=== PATIENT | female | born 1995 | race Caucasian/White ===

== ENCOUNTER 2018-04-01 16:02 | Emergency (ER) | payer SELFPAY ==
[2018-04-01 16:28] VITALS: TEMP 99.4
--- NOTE | 2018-04-01 17:08 | ED.PDOC ---
History of Present Illness - General Chief Complaint: ENT Problem Time Seen by Provider: 04/01/18 17:06 Source: patient Exam Limitations: no limitations - History of Present Illness Initial Comments: patient comes in today with 4 day history of right ear pain. Patient states the pain last night was so severe that it kept her awake. Patient had no discharge and does not hurt with movement. Patient has had no nasal congestion , fever, or chills. She's had these episodes before in the past and her PCP did not know what is causing them. She has a consultation with neurology there is still pending. Patient states today she was worried that she had an ear infection. Patient is otherwise healthy and has no other acute complaints. Timing/Duration: other - 4 days but really bad last night Severity: severe EENT Location: ear (R) Prearrival Treatment: no prearrival treatment Improving Factors: nothing Worsening Factors: nothing Associated Symptoms: fever - temp to 99 Allergies/Adverse Reactions: Allergies NO KNOWN ALLERGY Allergy (Verified 07/14/14 20:36) Home Medications: Ambulatory Orders Control 1 ea PO DAILY 09/10/15 Iron Combinations [Iron Complex] 1 cap PO DAILY 09/10/15 Sulfa/Trimeth 800/160 (Ds) Tab [Bactrim DS Tab] 1 ea PO BID #14 tab 09/10/15 Review of Systems - Review of Systems Constitutional: States: no symptoms reported, fever. Denies: chills EENTM: States: see HPI, ear pain. Denies: nose congestion, throat pain, mouth swelling Respiratory: States: no symptoms reported. Denies: cough, short of breath, wheezing Cardiology: States: no symptoms reported. Denies: chest pain, edema, palpitations Gastrointestinal/Abdominal: States: no symptoms reported. Denies: abdominal pain, constipation, diarrhea, vomiting Past Medical History (General) - Patient Medical History Hx Seizures: No Hx Stroke: No Hx Dementia: No Hx Asthma: No Hx of COPD: No Hx Cardiac Disorders: Yes - states she is anemic Hx Congestive Heart Failure: No Hx Pacemaker: No Hx Hypertension: No Hx Thyroid Disease: No Hx Diabetes: No Hx Gastroesophageal Reflux: No Hx Renal Disease: No Hx Cancer: No Hx of HIV: No Hx Hepatitis C: No Hx MRSA: No - Vaccination History Hx Tetanus, Diphtheria Vaccination: Yes Hx Influenza Vaccination: No Hx Pneumococcal Vaccination: No Immunizations Up to Date: No - Social History Hx Tobacco Use: No Hx Chewing Tobacco Use: No Hx Alcohol Use: No Hx Substance Use: No Hx Substance Use Treatment: No Hx Depression: No Feels Threatened In Home Enviroment: No Feels Threatened In a Relationship: No Hx Physical Abuse: No Hx Emotional Abuse: No Hx Suspected Abuse: No - Activities of Daily Living Hospice Agency (if applicable):: None - Female History Patient is a Female of Child Bearing Age (10 -59 yrs old): Yes Hx Last Menstrual Period: 05/15/14 Patient : Yes Family Medical History - Family History Mother Family History: Unknown Physical Exam - Physical Exam General Appearance: Alert, No apparent distress Eye Exam: bilateral normal Ear Exam: bilateral ear: auricle normal, canal normal, TM normal Nasal Exam: normal inspection Throat Exam: normal mouth inspection, pharynx normal Neck: non-tender, full range of motion, supple, normal inspection Cardiovascular/Respiratory: regular rate, rhythm, no M/R/G, normal peripheral pulses, normal breath sounds, no respiratory distress Abdominal Exam: other - nl BS Progress - Progress Progress: discussed with patient that overall the exam is reassuring. I offered to give her a shot of Toradol or something for swelling to see if perhaps there is some fluid that we just can't completely visualize. However, patient states she does not want a shot or anything if the exam is negative. At this time reassuring exam and she will follow up with her PCP 04/01/18 17:08 - EKG/XRAY/CT CT Ordered: No CT Interpretation Call Back: No Departure - Departure Clinical Impression: Myofascial pain Disposition: Discharge to Home or Self Care Condition: Good Departure Forms: ED Discharge - Pt. Copy, Patient Portal Self Enrollment Instructions: DI for Ear Pain-Adult Referrals: RICARDO SILVESTRE [employer] [facility] [Primary Care Provider] - 1-2 Weeks Home Medications: Ambulatory Orders Control 1 ea PO DAILY 09/10/15 Iron Combinations [Iron Complex] 1 cap PO DAILY 09/10/15 Sulfa/Trimeth 800/160 (Ds) Tab [Bactrim DS Tab] 1 ea PO BID #14 tab 09/10/15 Additional Instructions: follow up with PCP in am if not better
[2018-04-01] MEDS ORDERED: DEXAMETHASONE INJ 4 MG/ML VIAL IM ONE (17:14)
[2018-04-01] MEDS ORDERED: KETOROLAC TROMETHAMINE INJ 30 MG/ML VIAL IM ONE (17:14)
[2018-04-01 17:25] VITALS: BP 140/78; O2SAT 98
== END 2018-04-01 17:38 | disposition home or self-care (01) ==
LOC: ER 16:02
DX: M79.1 Myalgia (principal); H92.01 Otalgia, right ear; D64.9 Anemia, unspecified; Z79.899 Other long term (current) drug therapy
CPT/HCPCS: J1100; J1885

== ENCOUNTER 2018-11-02 01:15 | Emergency (ER) | payer OTHER ==
[2018-11-02 01:27] VITALS: BP 127/80; TEMP 98.7; O2SAT 100
[2018-11-02] MEDS ORDERED: AMOXICILLIN TRIHYDRATE 875 MG TAB PO ONE (01:35)
[2018-11-02] MEDS ORDERED: ACETAMINOPHEN W/COD #3 TAB (ER Disp) PO ONE (01:37)
--- NOTE | 2018-11-02 01:43 | ED.PDOC ---
History of Present Illness - General Chief Complaint: General Stated Complaint: Right side facial swelling x 3 days Time Seen by Provider: 11/02/18 01:25 Source: patient Exam Limitations: no limitations - History of Present Illness Initial Comments: c/o right sided facial swelling & a toothache x 2 days. No fever, headache or vomiting. 23 weeks . Timing/Duration: gradual Severity: moderate Prearrival Treatment: other - Tylenol 4 hrs ago Improving Factors: nothing Worsening Factors: eating Associated Symptoms: facial pain/swelling, tooth pain Allergies/Adverse Reactions: Allergies Tramadol Allergy (Verified 11/02/18 01:24) Home Medications: Ambulatory Orders Penicillin V Potassium 500 mg PO Q6H 7 Days #28 tab 11/02/18 Vit W/ Ferrous Fumara [] 1 11/02/18 Review of Systems - Review of Systems Constitutional: States: no symptoms reported EENTM: States: see HPI Respiratory: States: no symptoms reported Cardiology: States: no symptoms reported Gastrointestinal/Abdominal: States: no symptoms reported Genitourinary: States: no symptoms reported Neurological: States: no symptoms reported Past Medical History (General) - Patient Medical History Hx Seizures: No Hx Stroke: No Hx Dementia: No Hx Asthma: No Hx of COPD: No Hx Cardiac Disorders: Yes - states she is anemic Hx Congestive Heart Failure: No Hx Pacemaker: No Hx Hypertension: No Hx Thyroid Disease: No Hx Diabetes: No Hx Gastroesophageal Reflux: No Hx Renal Disease: No Hx Cancer: No Hx of HIV: No Hx Hepatitis C: No Hx MRSA: No - Vaccination History Hx Tetanus, Diphtheria Vaccination: Yes Hx Influenza Vaccination: No Hx Pneumococcal Vaccination: No - Social History Hx Tobacco Use: No Hx Chewing Tobacco Use: No Hx Alcohol Use: No Hx Substance Use: No Hx Substance Use Treatment: No Hx Depression: No Hx Physical Abuse: No Hx Emotional Abuse: No Hx Suspected Abuse: No - Female History Hx Last Menstrual Period: 05/15/14 Patient : Yes Family Medical History - Family History Mother Family History: Unknown Physical Exam - Physical Exam General Appearance: Alert, Comfortable, No apparent distress Eye Exam: bilateral normal Throat Exam: normal mouth inspection, pharynx normal, dental tenderness - #1 with gum line swelling & erythema, maxillary swelling Neck: supple, normal inspection Cardiovascular/Respiratory: no respiratory distress Neurologic: alert, normal mood/affect, oriented x 3 Skin Exam: normal color, warm/dry Departure - Departure Clinical Impression: Dental caries Time of Disposition: 01:41 Disposition: Discharge to Home or Self Care Condition: Good Departure Forms: ED Discharge - Pt. Copy, Patient Portal Self Enrollment Referrals: Parag Fuentes MD [Affiliate Staff] - 11/03/18 Prescriptions: Penicillin V Potassium 500 mg PO Q6H 7 Days #28 tab Home Medications: Ambulatory Orders Penicillin V Potassium 500 mg PO Q6H 7 Days #28 tab 11/02/18 Vit W/ Ferrous Fumara [] 1 11/02/18 Additional Instructions: follow up with your instructor of education on Saturday to advise him of the meds you ar t[place] & call a dentist also.
== END 2018-11-02 01:49 | disposition home or self-care (01) ==
LOC: ER 01:15
DX: O99.89 Other specified diseases and conditions complicating pregnancy, childbirth and the puerperium (principal); K02.9 Dental caries, unspecified; Z3A.23 23 weeks gestation of pregnancy; Z88.8 Allergy status to other drugs, medicaments and biological substances

== ENCOUNTER 2019-06-04 09:11 | Emergency (ER) | payer OTHER ==
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
[2019-06-04] MEDS ORDERED: ACETAMINOPHEN-CAFF-BUTALBITAL 1 EA TAB PO ONE (10:18)
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
[2019-06-04 14:14] VITALS: BP 126/82; TEMP 98.7; O2SAT 98
== END 2019-06-04 14:15 | disposition home or self-care (01) ==
LOC: ER 09:11
DX: S39.012A Strain of muscle, fascia and tendon of lower back, initial encounter (principal); G44.319 Acute post-traumatic headache, not intractable; E05.80 Other thyrotoxicosis without thyrotoxic crisis or storm; D64.9 Anemia, unspecified; M54.5 Low back pain; V49.9XXA Car occupant (driver) (passenger) injured in unspecified traffic accident, initial encounter; Y92.411 Interstate highway as the place of occurrence of the external cause

== ENCOUNTER 2019-10-31 07:47 | Emergency (ER) | payer SELFPAY ==
[2019-10-31] MEDS ORDERED: ONDANSETRON ODT 8 MG TAB SL ONE (07:53)
[2019-10-31] MEDS ORDERED: KETOROLAC TROMETHAMINE INJ 30 MG/ML VIAL IM ONE (07:53)
[2019-10-31 08:09] VITALS: TEMP 98.4
--- NOTE | 2019-10-31 10:57 | RAD ---
: 1995. Sex: Female. TECHNIQUE: Supine and upright views of the abdomen with PA chest. Comparing to June 04, 2019 CLINICAL HISTORY:ruq pain 3 hours. Findings: Nonspecific gas pattern. There are nondistended loops of large and small bowel. There is gas and stool throughout the large bowel including the sigmoid although there is little gas in the rectum. There is no mass. There is no free air. There is no opaque calculus. Skeletal structures are unremarkable. The chest x-ray is clear. IMPRESSION: 1. Nonspecific bowel pattern. No acute radiographic findings Electronically signed by: Rudy Cao MD 10/31/2019 10:56 AM CDT
[2019-10-31] MEDS ORDERED: MAGNESIUM HYDROXIDE 30 ML UD PO ONE (11:02)
--- NOTE | 2019-10-31 11:05 | ED.PDOC ---
History of Present Illness - General Chief Complaint: Abdominal Pain Stated Complaint: RLQ abdominal pain Time Seen by Provider: 10/31/19 07:52 Source: patient Exam Limitations: no limitations - History of Present Illness Initial Comments: The patient is a 24-year-old female presented emergency room secondary to abdominal pain that started a couple of hours prior to arrival. At its worst it was a 8 out of 10. Cramping in nature. It is a little worse with movement. Mild nausea. Not definitely worse with eating or drinking. No fevers. No syncope or near syncope. No pain prior to that. She has had some mild constipation issues in the past. She has already had her appendix removed but still has her gallbladder. She is not obese. Timing/Duration: 1-3 hours Severity: moderate Improving Factors: nothing Worsening Factors: nothing Associated Symptoms: nausea/vomiting Allergies/Adverse Reactions: Allergies Tramadol Allergy (Verified 10/31/19 08:08) Home Medications: Ambulatory Orders Ferrous Fumarate [Iron] 18 mg PO DAILY 10/31/19 Review of Systems - Review of Systems Constitutional: States: no symptoms reported EENTM: States: no symptoms reported Respiratory: States: no symptoms reported Cardiology: States: no symptoms reported Gastrointestinal/Abdominal: States: abdominal pain, constipation, nausea Genitourinary: States: no symptoms reported Musculoskeletal: States: no symptoms reported Skin: States: no symptoms reported Neurological: States: no symptoms reported Endocrine: States: no symptoms reported All other Systems: No Change from Baseline Past Medical History (General) - Patient Medical History Hx Seizures: No Hx Stroke: No Hx Dementia: No Hx Asthma: No Hx of COPD: No Hx Cardiac Disorders: No Hx Congestive Heart Failure: No Hx Pacemaker: No Hx Hypertension: No Hx Thyroid Disease: No Hx Diabetes: No Hx Gastroesophageal Reflux: No Hx Renal Disease: No Hx Cancer: No Hx of HIV: No Hx Hepatitis C: No Hx MRSA: No Surgical History: appendectomy - Vaccination History Hx Tetanus, Diphtheria Vaccination: No Hx Influenza Vaccination: Yes Hx Pneumococcal Vaccination: No Immunizations Up to Date: No - Social History Hx Tobacco Use: No Hx Chewing Tobacco Use: No Hx Alcohol Use: No Hx Substance Use: No Hx Substance Use Treatment: No Hx Depression: No Hx Physical Abuse: No Hx Emotional Abuse: No Hx Suspected Abuse: No - Female History Patient is a Female of Child Bearing Age (10 -59 yrs old): Yes Hx Last Menstrual Period: 05/15/14 Patient : No - Nexplanon implants Expected Date of Delivery:: 02/22/19 Family Medical History - Family History Mother Family History: Unknown Physical Exam - Physical Exam General Appearance: Alert, Comfortable, No apparent distress Eye Exam: bilateral normal Ears, Nose, Throat: hearing grossly normal, normal pharynx Neck: full range of motion, supple Respiratory: lungs clear, normal breath sounds, no respiratory distress, no accessory muscle use Cardiovascular/Chest: normal peripheral pulses, regular rate, rhythm, no edema Peripheral Pulses: radial,right: 2+, radial,left: 2+ Gastrointestinal/Abdominal: soft, other - Vague upper right abdominal discomfort to palpation. No definite rebound or peritoneal signs. Rectal Exam: deferred Back Exam: no CVA tenderness, no vertebral tenderness Extremity: normal range of motion, non-tender, normal inspection, no pedal edema, normal capillary refill, pelvis stable Neurologic: patient services representative II-XII nml as tested, alert, normal mood/affect, oriented x 3 Skin Exam: normal color Comments: Vital Signs - 24 hr 10/31/19 10/31/19 10/31/19 07:55 07:56 08:56 Temperature 98.4 F Pulse Rate [ 83 83 73 Pulse ox] Respiratory 16 16 18 Rate Blood Pressure 127/81 122/71 [R brachial] O2 Sat by Pulse 100 99 Oximetry 10/31/19 10:00 Temperature Pulse Rate [ 64 Pulse ox] Respiratory 16 Rate Blood Pressure 124/82 [R brachial] O2 Sat by Pulse 100 Oximetry Progress - Progress Progress: 10/31/19 11:06 The patient is a 24-year-old female presented emergency room secondary to upper abdominal pain of several hours duration. The patient is afebrile with no elevation of the white blood cell count, no elevation of liver function tests or pancreatic enzymes. Renal function is within normal limits and urinalysis is reassuring. She is mildly dehydrated and does need to increase her fluid intake. Abdominal x-ray shows some mild dilation of the large intestine around the area of discomfort that may be the cause of the pain. The patient has been given a dose of milk of magnesia to address that here currently. I would encourage her to ambulate. Maintain a bland diet over the next 24 hours. If discomfort is not improving or is worsening, then repeat evaluation with repeat laboratory work and possibly more advanced imaging may be warranted. Based on the findings above, that does not seem indicated at this time. Keep routine follow-up with primary care doctor. ER warnings are given. [email or web address] - Results/Orders Results/Orders: Acute abdominal series appears largely benign. There is some mildly dilated loops of large intestine around the area of discomfort but no obstruction. Laboratory Results - last 24 hr 10/31/19 10/31/19 10/31/19 08:10 08:10 09:10 WBC 5.0 RBC 4.61 Hgb 12.0 Hct 37.4 MCV 81.0 MCH 26.0 L MCHC 32.0 L RDW 14.8 H Plt Count 228 MPV 9.1 Absolute Neuts (auto) 2.80 Absolute Lymphs (auto) 1.80 Absolute Monos (auto) 0.30 Absolute Eos (auto) 0.00 Absolute Basos (auto) 0.00 Neutrophils % 57.3 Lymphocytes % 35.6 Monocytes % 5.8 Eosinophils % 0.6 L Basophils % 0.7 Sodium 138 Potassium 3.4 L Chloride 105 Carbon Dioxide 26 Anion Gap 10.4 L BUN 9 Creatinine 0.86 BUN/Creatinine Ratio 10.5 Random Glucose 104 Serum Osmolality 274.7 L Calcium 9.0 Magnesium 1.9 Total Bilirubin 0.6 AST 16 ALT 13 Alkaline Phosphatase 79 Serum Total Protein 7.9 Albumin 4.1 Globulin 3.8 H Albumin/Globulin Ratio 1.1 Amylase 32 Lipase 28 Serum HCG, Qual Negative Urine Color Urine Appearance Urine pH Ur Specific [place] Urine Protein Urine Glucose (UA) Urine Ketones Urine Blood Urine Nitrite Urine Bilirubin Urine Urobilinogen Ur Leukocyte Esterase Urine RBC Urine WBC Ur Epithelial Cells Urine Bacteria 10/31/19 10:22 WBC RBC Hgb Hct MCV MCH MCHC RDW Plt Count MPV Absolute Neuts (auto) Absolute Lymphs (auto) Absolute Monos (auto) Absolute Eos (auto) Absolute Basos (auto) Neutrophils % Lymphocytes % Monocytes % Eosinophils % Basophils % Sodium Potassium Chloride Carbon Dioxide Anion Gap BUN Creatinine BUN/Creatinine Ratio Random Glucose Serum Osmolality Calcium Magnesium Total Bilirubin AST ALT Alkaline Phosphatase Serum Total Protein Albumin Globulin Albumin/Globulin Ratio Amylase Lipase Serum HCG, Qual Urine Color Yellow Urine Appearance Cloudy H Urine pH 5.5 Ur Specific [place] > 1.030 H Urine Protein Negative Urine Glucose (UA) Negative Urine Ketones Negative Urine Blood Negative Urine Nitrite Negative Urine Bilirubin Negative Urine Urobilinogen 1.0 Ur Leukocyte Esterase Trace H Urine RBC 0 Urine WBC 3-5 H Ur Epithelial Cells 10-20 Urine Bacteria Rare Departure - Departure Clinical Impression: Mild dehydration, Colicky abdominal pain Disposition: Discharge to Home or Self Care Condition: Fair Departure Forms: ED Discharge - Pt. Copy, Patient Portal Self Enrollment Diet: bland diet Activity: increase activity as tolerated Referrals: RICARDO SILVESTRE IV, WINDOWS SERVER SPECIALIST [Primary Care Provider] - 1-2 Weeks Home Medications: Ambulatory Orders Ferrous Fumarate [Iron] 18 mg PO DAILY 10/31/19 Additional Instructions: The patient is a 24-year-old female presented emergency room secondary to upper abdominal pain of several hours duration. The patient is afebrile with no elevation of the white blood cell count, no elevation of liver function tests or pancreatic enzymes. Renal function is within normal limits and urinalysis is reassuring. She is mildly dehydrated and does need to increase her fluid intake. Abdominal x-ray shows some mild dilation of the large intestine around the area of discomfort that may be the cause of the pain. The patient has been given a dose of milk of magnesia to address that here currently. I would encourage her to ambulate. Maintain a bland diet over the next 24 hours. If discomfort is not improving or is worsening, then repeat evaluation with repeat laboratory work and possibly more advanced imaging may be warranted. Based on the findings above, that does not seem indicated at this time. Keep routine follow-up with primary care doctor. ER warnings are given.
[2019-10-31 11:17] VITALS: BP 119/71; O2SAT 98
== END 2019-10-31 11:13 | disposition home or self-care (01) ==
LOC: ER 07:47
DX: E86.0 Dehydration (principal); R10.31 Right lower quadrant pain
CPT/HCPCS: 74019; 80053; 81001; 82150; 83690; 83735; 84703; 85025; J1885